=== PATIENT | male | born 1960 | race Two or more races ===

== ENCOUNTER 2024-07-03 14:09 | Emergency (ER) | payer MEDICARE ==
[~2024-07-03] VITALS: Ht 152.4 cm; Wt 72.6 kg
[2024-07-03 16:02] VITALS: BP 132/72; TEMP 98.2; O2SAT 96
== END 2024-07-03 16:03 | disposition home or self-care (01) ==
LOC: ER 14:30
DX: S05.11XA Contusion of eyeball and orbital tissues, right eye, initial encounter (principal); S20.211A Contusion of right front wall of thorax, initial encounter; E11.9 Type 2 diabetes mellitus without complications; Y04.0XXA Assault by unarmed brawl or fight, initial encounter; Y93.89 Activity, other specified; Y92.89 Other specified places as the place of occurrence of the external cause; Y99.8 Other external cause status
CPT/HCPCS: 70450-TC; 70486-TC; 71045-TC